=== PATIENT | female | born 1960 | race Caucasian/White ===

== ENCOUNTER → 2017-07-19 13:32 | Outpatient (CLI) | payer OTHER, SELFPAY ==
--- NOTE | 2017-07-19 | CER_PTH ---
PATIENT: ANA MARÍA FENG LOC: [facility] U#:[id number] AGE/SX: 64/F ROOM: RE07/19/[address]: Dr. Juanito Griffiths MD : 1960 BED: DIS: SPEC #: [id number] RECD: 07/19/17 14:57 STATUS: ARIEL JOSE G #: [id number] TIFFANIE: 07/19/17 00:[address]: Juanito Griffiths DEPT: SURGICAL PATHOLOGY RECD BY: Zacarias Peters Tissues: A - Uterine cervix, NOS B - Endocervical Procedures: Surgery Specimen Level IV HEADER OPERATION: Colposcopy PRE-OP DIAGNOSIS: R87.610, R87.810 TISSUE SUBMITTED: A ? Cervical biopsy four quad, B - ECC MICROSCOPIC DIAGNOSIS A. Cervix, four-quadrant, biopsy: Focal changes consistent with HPV cytopathic effects. See comment. B. ECC: Fragments of benign ecto- and endocervical epithelium, blood and mucous, negative for dysplasia. See comment. JOSUE:francois 07/20/17 COMMENT A & B. Results from immunohistochemistry ([id number]) for surrogate HPV marker (p16) will be reported separately. MICROSCOPIC DESCRIPTION Slides are reviewed. GROSS DESCRIPTION A - Received in fixative is one container labeled with the patient's name and designated cervical biopsy four quadrant. The specimen consists of multiple irregular fragments of light [place] soft tissue that in aggregate measure 1 x 0.5 x 0.1 cm. The specimen is totally submitted in one cassette. B - Received in fixative is one container labeled with the patient's name and designated ECC. The specimen consists of multiple fragments of hemorrhagic mucoid tissue that in aggregate measure 1 x 0.5 x 0.1 cm. The specimen is totally submitted in one cassette. / JOSUE:francois 07/19/17 TC:5 CPT: 42043 x2
--- NOTE | 2017-07-19 | IMM_PTH ---
PATIENT: ANA MARÍA FENG LOC: [facility] U#:[id number] AGE/SX: 64/F ROOM: RE07/19/[address]: Dr. Juanito Griffiths MD : 1960 BED: DIS: SPEC #: [id number] RECD: 07/20/17 10:42 STATUS: ARIEL REYodit #: [id number] TIFFANIE: 07/19/17 00:[address]: Juanito Griffiths DEPT: IMMUNOHISTOCHEMISTRY RECD BY: Emily Bynum Tissues: A - Uterine cervix, NOS B - Endocervical Procedures: p16 (initial) KI-67 (add) PHYSICIAN & [place] [id number] SPECIMEN INFORMATION: Tissue Source: A ? Cervical biopsy four quadrant, B - ECC Clinical Info: R87.610, R87.810 Specimen Number: [id number] A & B CPT code: 49301 x2, 14490 x2 METHODOLOGY: Deparaffinized sections of prefer/formalin-fixed tissue or PAP/DQ stained slides are incubated with monoclonal/polyclonal antibodies/oligonucleotide probes. Localization is made via biotin free immunoperoxidase method. Appropriate controls are performed and reacted as expected. Results on target cell population are indicated in the following table: RESULTS: ANTIBODY / CLONE RESULT Block A P16 (E6H4) positive, focal and patchy Ki-67 (30-9) negative Block B P16 (E6H4) positive, focal and patchy Ki-67 (30-9) negative These tests were developed and their performance characteristics determined by [facility]. They may not have been cleared or approved by the [place]. Food and Drug Administration. The FDA has determined that such clearance or approval is not necessary. INTERPRETATION: A. Cervix, four-quadrant biopsy: Focal changes consistent with HPV cytopathic effect. B. ECC: Negative for dysplasia. SJ:francois 07/20/17
== END ==
PROVIDERS: Visit Provider Obstetrics & Gynecology
DX: R87.610 Atypical squamous cells of undetermined significance on cytologic smear of cervix (ASC-US) (principal)
CPT/HCPCS: 88305; 88341; 88342

== ENCOUNTER → 2021-11-17 | Outpatient (CLI) | payer OTHER, SELFPAY ==
[2021-11-17 12:45] VITALS: BP 105/69; PULSE 83; RESP 16; TEMP 35.5; O2SAT 100; BMI 22.6
[2021-11-17] MEDS: 0.9% NaCl IVPB Med Flush (250 mL) 15 ML IV (13:04)
[2021-11-17] MEDS: Zoledronic Acid 5 MG 100 ML 300 MG IV (13:04)
[2021-11-17] MEDS: 0.9% NaCl Peripheral Flush Adult/Peds IV (13:05)
[2021-11-17 13:34] VITALS: BP 99/61; PULSE 69; RESP 16; TEMP 36.1; O2SAT 100
== END | disposition home or self-care (01) ==
PROVIDERS: PCP Physician Assistant; Referring Provider Nurse Practitioner Family; Visit Provider Nurse Practitioner Family
DX: M81.0 Age-related osteoporosis without current pathological fracture (principal)
CPT/HCPCS: 96365; J7050; A4216; J3489

== ENCOUNTER → 2022-11-14 | Outpatient (CLI) | payer OTHER, SELFPAY ==
[2022-11-14 11:05] LABS: ALB/GLOB Ratio 1.2 RATIO (0.9-2.4); AST(SGOT) 13 U/L (15-37); Alanine Aminotransfer ALT/SGPT 24 U/L (13-56); Alkaline Phosphatase 58 U/L (45-117); Anion Gap 4 (5-15); BUN 12 mg/dL (7-18); BUN/Creat Ratio 15.8 RATIO (10-20); Calcium,Total 8.9 mg/dL (8.5-10.1); Chloride 105 mmol/L (98-107); Creatinine, Serum 0.76 mg/dL (0.55-1.02); EST Glomerular Filtration Rate 82 mL/min (>60); Est Glom Filt Rate - Afr Amer 100 mL/min (>60); Globulin 3.2 g/dL (2.2-4.2); Glucose 97 mg/dL (74-106); Protein, Total 7.2 g/dL (6.4-8.2); Sodium Level 138 mmol/L (136-145)
[2022-11-14 11:06] LABS: Vitamin D,25 Hydroxy 42.6 ng/mL
== END | disposition home or self-care (01) ==
PROVIDERS: PCP Physician Assistant; Referring Provider Internal Medicine Endocrinology, Diabetes & Metabolism; Visit Provider Internal Medicine Endocrinology, Diabetes & Metabolism
DX: M81.0 Age-related osteoporosis without current pathological fracture (principal)
CPT/HCPCS: 36415; 80053; 82306

== ENCOUNTER 2022-11-21 12:44 | Outpatient (CLI) | payer OTHER, SELFPAY ==
[2022-11-21] MEDS: 0.9% NaCl Peripheral Flush Adult/Peds IV (12:53)
[2022-11-21] MEDS: Zoledronic Acid 5 MG 100 ML 300 MG IV (12:55)
[2022-11-21 13:03] VITALS: BP 99/63; PULSE 77; RESP 16; TEMP 36.6; O2SAT 100; BMI 22.6
[2022-11-21 13:21] VITALS: BP 108/66; PULSE 72; RESP 16; TEMP 35.8; O2SAT 99
== END 2022-11-21 12:45 | disposition home or self-care (01) ==
LOC: MEDOUTP 12:44
PROVIDERS: PCP Physician Assistant; Referring Provider Internal Medicine Endocrinology, Diabetes & Metabolism; Visit Provider Internal Medicine Endocrinology, Diabetes & Metabolism
DX: M81.0 Age-related osteoporosis without current pathological fracture (principal)
CPT/HCPCS: 96365; A4216; J3489

== ENCOUNTER → 2023-10-23 | Outpatient (CLI) | payer OTHER, SELFPAY ==
[2023-10-23 10:44] LABS: ALB/GLOB Ratio 1.2 RATIO (0.9-2.4); AST(SGOT) 19 U/L (15-37); Alanine Aminotransfer ALT/SGPT 29 U/L (13-56); Albumin, Serum 3.8 g/dL (3.2-5.0); Alkaline Phosphatase 60 U/L (45-117); Anion Gap 5 (5-15); BUN 12 mg/dL (7-18); BUN/Creat Ratio 17.3 RATIO (10-20); Calcium,Total 9.2 mg/dL (8.5-10.1); Chloride 106 mmol/L (98-107); Creatinine, Serum 0.69 mg/dL (0.55-1.02); EST Glomerular Filtration Rate 91 mL/min (>60); Est Glom Filt Rate - Afr Amer 110 mL/min (>60); Globulin 3.2 g/dL (2.2-4.2); Glucose 99 mg/dL (74-106); Sodium Level 138 mmol/L (136-145); Thyroid Stim Hormone (TSH) 0.518 uIU/mL (0.358-3.740); Vitamin D,25 Hydroxy 68.7 ng/mL
== END | disposition home or self-care (01) ==
LOC: PAVLAB 09:46
PROVIDERS: PCP Physician Assistant; Referring Provider Internal Medicine Endocrinology, Diabetes & Metabolism; Visit Provider Internal Medicine Endocrinology, Diabetes & Metabolism
DX: M81.0 Age-related osteoporosis without current pathological fracture (principal); E55.9 Vitamin D deficiency, unspecified
CPT/HCPCS: 36415; 80053; 82306; 84443

== ENCOUNTER 2023-11-22 12:58 | Outpatient (CLI) | payer OTHER, SELFPAY ==
[2023-11-22 13:23] VITALS: BP 107/59; PULSE 72; RESP 16; TEMP 36.5
[2023-11-22] MEDS: Zoledronic Acid 5 MG 100 ML 300 MG IV (13:32)
[2023-11-22] MEDS: 0.9% NaCl Peripheral Flush Adult/Peds IV (13:32)
[2023-11-22 13:58] VITALS: BP 101/56; PULSE 93; RESP 14; TEMP 36.4; O2SAT 95
== END 2023-11-22 23:59 | disposition home or self-care (01) ==
LOC: MEDOUTP 12:59
PROVIDERS: PCP Physician Assistant; Referring Provider Internal Medicine Endocrinology, Diabetes & Metabolism; Visit Provider Internal Medicine Endocrinology, Diabetes & Metabolism
DX: M81.0 Age-related osteoporosis without current pathological fracture (principal)
CPT/HCPCS: 96365; A4216; J3489

== ENCOUNTER → 2024-10-23 | Outpatient (CLI) | payer OTHER, SELFPAY ==
[2024-10-23 18:43] LABS: AST(SGOT) 20 U/L (<=31); Alanine Aminotransfer ALT/SGPT 22 U/L (<=34); Albumin, Serum 4.6 g/dL (3.4-4.8); Alkaline Phosphatase 51 U/L (35-104); Anion Gap 13 (5-15); BUN 10 mg/dL (4-19); BUN/Creat Ratio 14.3 RATIO (10-20); Calcium,Total 9.7 mg/dL (7.6-11.0); Carbon Dioxide 24.2 mmol/L (21.0-32.0); Chloride 100 mmol/L (98-108); Globulin 2.4 g/dL (2.2-4.2); Glucose 97 mg/dL (70-99); Potassium 4.0 mmol/L (3.3-5.1); Vitamin D,25 Hydroxy 65.4 ng/mL (30-100)
== END | disposition home or self-care (01) ==
LOC: LAB 16:37
PROVIDERS: PCP Physician Assistant; Referring Provider Internal Medicine Endocrinology, Diabetes & Metabolism; Visit Provider Internal Medicine Endocrinology, Diabetes & Metabolism
DX: M81.0 Age-related osteoporosis without current pathological fracture (principal); E03.9 Hypothyroidism, unspecified
CPT/HCPCS: 36415; 80053; 82306

== ENCOUNTER 2024-11-24 09:29 | Outpatient (CLI) | payer OTHER, SELFPAY ==
[2024-11-24 09:33] VITALS: BP 110/72; PULSE 77; RESP 16; TEMP 35.6; O2SAT 98
[2024-11-24 10:13] VITALS: BP 93/72; PULSE 67; RESP 16
== END 2024-11-24 23:59 | disposition home or self-care (01) ==
PROVIDERS: PCP Physician Assistant; Referring Provider Internal Medicine Endocrinology, Diabetes & Metabolism; Visit Provider Internal Medicine Endocrinology, Diabetes & Metabolism
DX: M81.0 Age-related osteoporosis without current pathological fracture (principal)
CPT/HCPCS: 96365; A4216; J3489